=== PATIENT | female | born 1945 | race Two or more races ===

== ENCOUNTER 2024-06-29 05:15 | Day surgery (SDC) | payer OTHER ==
[~2024-06-29 05:15] MED LIST: GLUMETZA500 MG; LOSARTAN POTAS100 MG; ROSUVASTATIN CA40 MG; [UNRECOGNIZED DRUG - OTHER]
[2024-06-29] MEDS ORDERED: POVIDONE-IODINE 118 ML BOTT TOP ONE (08:00)
[2024-06-29] MEDS ORDERED: DIBUCAINE 30 GM TUBE RECTAL ONE (08:00)
[2024-06-29] MEDS ORDERED: BUPIVACAINE HCL 30 ML VIAL IV ONE (08:00)
[2024-06-29] MEDS ORDERED: LIDOCAINE HCL 1%/EPINEPHRINE 20ML VIAL IJ ONE (08:00)
[2024-06-29] MEDS ORDERED: HEMOSTATIC MATRIX 1 KIT KIT TOP ONE (08:00)
[2024-06-29] MEDS ORDERED: CEFTRIAXONE SODIUM 2,000 MG VIAL IV ONE (08:15)
[2024-06-29] MEDS ORDERED: METRONIDAZOLE/SODIUM CHLORIDE 500 MG/100 ML PIGGYBACK IV ONE (08:15)
[2024-06-29] MEDS ORDERED: NEURONTIN300 MG PO (10:15)
== END 2024-06-29 12:10 | disposition home or self-care (01) ==
LOC: CIR.AMB 05:15
PROVIDERS: ATTEND Surgery
DX: C20 Malignant neoplasm of rectum (principal); K62.89 Other specified diseases of anus and rectum